=== PATIENT | female | born 1990 ===

== ENCOUNTER 2017-09-15 15:15 | Emergency (ER) | payer OTHER ==
[2017-09-15 15:16] VITALS: BMI 25.1
[2017-09-15 15:56] VITALS: TEMP 98
[2017-09-15] MEDS ORDERED: Sodium Chloride 0.9% 1,000 ML IV STA (16:08)
--- NOTE | 2017-09-15 16:29 | ED PDOC ---
Arrival/HPI - General Chief Complaint: Abdominal Pain Time Seen by Provider: 09/15/17 15:55 Historian: Patient - History of Present Illness Narrative History of Present Illness (Text): 09/15/17 16:22 27yo female with no PMHx present with complaint of abdominal pain with associated nausea, vomiting and dizziness. She notes history of this intermittent abdominal pain for years. states pain is worse today. She did not take any medication. Notes constipation. Last BM was 3days ago, and she usually goes once. Denies fever, chills, hematemesis, hematochezia, urinary symptoms, sick contact, chest pain, SOB, back pain, any other complaint. Past Medical History - Provider Review Nursing Documentation Reviewed: Yes - Infectious Disease Hx of Infectious Diseases: None - Psychiatric Hx Substance Use: No - Anesthesia Hx Anesthesia: No Family/Social History - Physician Review Nursing Documentation Reviewed: Yes Family/Social History: Unknown Family HX Smoking Status: Never Smoked Hx Alcohol Use: No Hx Substance Use: No Allergies/Home Meds Allergies/Adverse Reactions: Allergies No Known Allergies Allergy (Verified 09/15/17 15:51) Review of Systems - Physician Review All systems were reviewed & negative as marked: Yes - Review of Systems Constitutional: Normal Eyes: Normal ENT: Normal Respiratory: Normal Cardiovascular: Normal Gastrointestinal: Abdominal Pain, Nausea, Vomiting. absent: Constipation, Diarrhea, Hematochezia, Hematemesis Genitourinary Female: Normal Musculoskeletal: Normal Skin: Normal Neurological: Normal Endocrine: Normal Hemo/Lymphatic: Normal Psychiatric: Normal Physical Exam Vital Signs Reviewed: Yes Vital Signs Temp Pulse Resp BP Pulse Ox 09/15/17 19:00 78 18 124/78 100 09/15/17 17:16 66 18 111/65 99 09/15/17 15:55 98.0 F 63 17 107/60 99 Temperature: Afebrile Blood Pressure: Normal Pulse: Regular Respiratory Rate: Normal Appearance: Positive for: Well-Appearing, Non-Toxic, Comfortable Pain Distress: None Mental Status: Positive for: Alert and Oriented X 3 - Systems Exam Head: Present: Atraumatic, Normocephalic Pupils: Present: PERRL Extroacular Muscles: Present: EOMI Conjunctiva: Present: Normal Mouth: Present: Moist Mucous Membranes Neck: Present: Normal Range of Motion Respiratory/Chest: Present: Clear to Auscultation, Good Air Exchange. No: Respiratory Distress, Accessory Muscle Use Cardiovascular: Present: Regular Rate and Rhythm, Normal S1, S2. No: Murmurs Abdomen: Present: Normal Bowel Sounds, Other (Soft). No: Tenderness, Distention , Peritoneal Signs, Rebound, Guarding, McBurney's Point Tender, Rovsing's Sign Present Back: Present: Normal Inspection Upper Extremity: Present: Normal Inspection. No: Cyanosis, Edema Lower Extremity: Present: Normal Inspection. No: Edema Neurological: Present: GCS=15, CN II-XII Intact, Speech Normal Skin: Present: Warm, Dry, Normal Color. No: Rashes Psychiatric: Present: Alert, Oriented x 3, Normal Insight, Normal Concentration Medical Decision Making ED Course and Treatment: 09/15/17 18:38 Pt in ED for stated history. Her abdominal exam was benign. She was treated with pepcid, Ns and toradol in ED. Lab was unremarkable. Abdominal xray - Nonobstructive gas. 09/15/17 23:21 She was DC home with pepcid. Referred to her PMD/clinic - Lab Interpretations Lab Results: 09/15/17 16:18 09/15/17 16:18 Lab Results 09/15/17 16:18: Sodium 138, Potassium 4.0, Chloride 101, Carbon Dioxide 26, Anion Gap 15, BUN 15, Creatinine 0.8, Est GFR ( Amer) > 60, Est GFR (Non- Af Amer) > 60, Random Glucose 88, Calcium 9.5, Total Bilirubin 0.6, AST 37 H, ALT 41, Alkaline Phosphatase 43, Total Protein 7.5, Albumin 4.6, Globulin 2.9, Albumin/Globulin Ratio 1.6, Lipase 115 09/15/17 16:18: Urine Color Yellow, Urine Appearance Clear, Urine pH 6.0, Ur Specific [place] 1.010, Urine Protein Negative, Urine Glucose (UA) Negative, Urine Ketones 15 H, Urine Blood Small H, Urine Nitrate Negative, Urine Bilirubin Negative, Urine Urobilinogen 0.2, Ur Leukocyte Esterase Negative, Urine RBC 1 - 3, Urine WBC 2 - 5, Ur Epithelial Cells 3 - 4, Urine Bacteria Mod 09/15/17 16:18: PT 10.5, INR 0.96, APTT 28.1 09/15/17 16:18: WBC 10.7, RBC 4.65, Hgb 13.9, Hct 41.3, MCV 88.8, MCH 29.9, MCHC 33.7, RDW 13.4, Plt Count 179, MPV 9.2, Gran % 79.7 H, Lymph % (Auto) 10.7 L, [place] % (Auto) 9.1 H, Eos % (Auto) 0.4 L, Baso % (Auto) 0.1, Gran # 8.53 H, Lymph # 1.2, [place] # 1.0 H, Eos # 0.0, Baso # 0.01 - RAD Interpretation Radiology Orders: 09/15/17 16:32 ABD 2 VIEWS (FLAT/UP OR DECUB) [RAD] Stat - Medication Orders Current Medication Orders: Discontinued Medications Famotidine (Pepcid) 20 mg IVP STAT STA Stop: 09/15/17 16:09 Last Admin: 09/15/17 16:28 Dose: 20 mg IVP Administration Document 09/15/17 16:28 GMD (Rec: 09/15/17 16:28 [id number]) Charges for Administration # of IVP Administrations 1 Sodium Chloride (Sodium Chloride 0.9%) 1,000 mls @ 1,000 mls/hr IV .Q1H STA Stop: 09/15/17 17:07 Last Admin: 09/15/17 16:28 Dose: 1,000 mls/hr eMAR Start Stop Document 09/15/17 16:28 GMD (Rec: 09/15/17 16:28 [id number]) Intravenous Solution Start Date 09/15/17 Start Time 16:28 End Date 09/15/17 End time 17:28 Total Infusion Time 60 Ondansetron HCl (Zofran Inj) 4 mg IVP STAT STA Stop: 09/15/17 16:09 Last Admin: 09/15/17 16:28 Dose: 4 mg IVP Administration Document 09/15/17 16:28 GMD (Rec: 09/15/17 16:28 [id number]) Charges for Administration # of IVP Administrations 1 Disposition/Present on Arrival - Present on Arrival Any Indicators Present on Arrival: No History of DVT/PE: No History of Uncontrolled Diabetes: No Urinary Catheter: No History of Decub. Ulcer: No History Surgical Site Infection Following: None - Disposition Have Diagnosis and Disposition been Completed?: Yes Diagnosis: Abdominal pain Disposition: HOME/ ROUTINE Disposition Time: 18:55 Patient Plan: Discharge Condition: STABLE Discharge Instructions (ExitCare): Abdominal Pain (ED) Additional Instructions: Follow up with your Doctor/clinic Return to ED for any new symptoms Prescriptions: Famotidine [Pepcid] 20 mg PO BID #20 tab Ondansetron ODT [Zofran ODT] 4 mg PO Q6 #8 odt Referrals: PCP,NO [Primary Care Provider] - [place] up [place] [facility] [place] - Follow up with primary Forms: [employer] (Slovak)
[2017-09-15 16:37] LABS: BASO # 0.01 K/mm3 (0.0-2.0); BASO % 0.1 % (0.0-3.0); EOS % 0.4 % (1.5-5.0); GRAN # 8.53 (1.4-6.5); GRAN % 79.7 % (50.0-68.0); HEMATOCRIT 41.3 % (36.0-48.0); LYMPH # 1.2 (1.2-3.4); LYMPH % 10.7 % (22.0-35.0); MEAN CELL VOLUME 88.8 fl (80.0-105.0); MEAN CORPUSCULAR HEMOGLOBIN 29.9 pg (25.0-35.0); MEAN CORPUSCULAR HGB CONC 33.7 g/dl (31.0-37.0); MEAN PLATELET VOLUME 9.2 fl (7.0-11.0); MONO % 9.1 % (1.0-6.0); RED CELL DISTRIBUTION WIDTH 13.4 % (11.5-14.5); WHITE BLOOD COUNT 10.7 10^3/ul (4.5-11.0)
[2017-09-15 16:38] LABS: URINE BILIRUBIN NEGATIVE (NEGATIVE); URINE BLOOD SMALL (NEGATIVE); URINE GLUCOSE (UA) NEGATIVE (NEGATIVE); URINE KETONE 15 mg/dL (NEGATIVE); URINE LEUKOCYTE ESTERASE NEGATIVE Leu/uL (NEGATIVE); URINE PROTEIN NEGATIVE mg/dL (<30 mg/dL); URINE UROBILINOGEN 0.2 E.U./dL (<1 E.U./dL)
[2017-09-15 16:39] LABS: URINE APPEARANCE CLEAR (CLEAR); URINE COLOR YELLOW (YELLOW)
[2017-09-15 16:44] LABS: INR 0.96 (0.93-1.08); PARTIAL THROMBOPLASTIN TIME 28.1 Seconds (25.1-36.5)
[2017-09-15 16:46] LABS: URINE BACTERIA MOD (NEG)
[2017-09-15 17:07] LABS: ALB/GLOB RATIO 1.6 (1.1-1.8); ALKALINE PHOSPHATASE 43 U/L (38-126); ALT/SGPT 41 U/L (7-56); AST/SGOT 37 U/L (14-36); BILIRUBIN,TOTAL 0.6 mg/dL (0.2-1.3); BLOOD UREA NITROGEN 15 mg/dL (7-21); CALCIUM 9.5 mg/dL (8.4-10.5); CARBON DIOXIDE 26 mmol/L (21-33); CHLORIDE 101 mmol/L (98-107); GFR AFRICAN-AMERICAN > 60; GLUCOSE,RANDOM 88 mg/dL (70-110); LIPASE 115 U/L (23-300); SODIUM 138 mmol/L (132-148); TOTAL PROTEIN 7.5 g/dL (5.8-8.3)
[2017-09-15 17:34] VITALS: RESP 18
--- NOTE | 2017-09-15 18:18 | RAD ---
HISTORY: abdominal pain COMPARISON: No prior. FINDINGS: BOWEL: The bowel gas pattern is nonobstructive. No bowel dilatation or air-fluid levels. No free air. BONES: Normal. OTHER FINDINGS: None. IMPRESSION: Nonobstructive bowel-gas pattern.
[2017-09-15] MEDS ORDERED: Insulin Regular 1 UNITS/0.01 ML ML ONE (18:44)
[2017-09-15 19:00] VITALS: BP 124/78; PULSE 78; O2SAT 100
== END 2017-09-15 19:00 | disposition home or self-care (01) ==
LOC: ED 15:15
DX: R10.9 Unspecified abdominal pain (principal)
CPT/HCPCS: 74020; 80053; 81001; 83690; 85025; 85610; 85730; 96361; 96374; 96375; 99284; J2405; J7040